=== PATIENT | female | born 1995 | race Two or more races ===

== ENCOUNTER → 2017-01-10 | Emergency (ER) | payer MEDICAID ==
[~2017-01-10] VITALS: Ht 167.6 cm; Wt 73.0 kg
[~2017-01-10] MED LIST: Acetaminophen 500mg (ES) tab ORAL ONE; IBUPROFEN600 MG ORAL; NKM
--- NOTE | 2017-01-10 16:16 | Emergency Room Report ---
History of Present Illness General Chief Complaint: Lower Extremity Injury Source: Patient Present Illness HPI 21 YO Female Pt. presents to the ED c/o 08/29 pain and swelling in the left ankle and pain radiating up the bilateral anterior shins as well x 2 weeks. s/ p excessive daily treadmill training. pt reports that her athletic trainer told her not to rest that the pain is her ankles " getting accustomed to running." denies bruising, or appreciable fall. Pt. states pain is exacerbated with walking/ and weight bearing. Pt. has only been doing ice and elevation, denies taking medications for her symptoms. Denies numbness tingling or loss of sensation or gross motor movements of the extremities, incontinence of bowel or bladder. Denies CP, Palpitations, LOC, AMS, dizziness, Changes in Vision, Sensation, paresthesias, or a sudden severe headache. Allergies: Coded Allergies: No Known Allergies (Unverified , 01/10/17) Patient History Past Medical History: see triage record Past Surgical History: none Pertinent Family History: none Last Menstrual Period: 12/09/16 Now: No Immunizations: UTD Reviewed Nursing Documentation: PMH: Agreed, PSxH: Agreed Nursing Documentation-PMH Past Medical History: No Stated History Review of Systems All Other Systems: negative except mentioned in HPI Physical Exam Vital Signs Date Time Temp Pulse Resp B/P Pulse Ox O2 Delivery O2 Flow Rate FiO2 01/10/17 14:52 99.1 62 14 110/58 99 Room Air Sp02 EP Interpretation: reviewed, normal General Appearance: no apparent distress, alert, GCS 15, non-toxic Head: normocephalic, atraumatic Eyes: bilateral eye PERRL, bilateral eye normal inspection ENT: hearing grossly normal, normal pharynx, no angioedema, normal voice Neck: full range of motion, supple/symm/no masses Respiratory: chest non-tender, lungs clear, normal breath sounds, speaking full sentences Cardiovascular #1: regular rate, rhythm, no edema, normal capillary refill Musculoskeletal: back normal, gait/station normal, normal range of motion, no calf tenderness, swelling - left ankle swelling, and ttp, no increased laxity or bruising. pt also has mild bilateraly anterior ag ttp, no obvious deformities. Neurologic: alert, oriented x3, responsive, motor strength/tone normal, sensory intact, speech normal Psychiatric: judgement/insight normal, memory normal, mood/affect normal, no suicidal/homicidal ideation Skin: normal color, no rash, warm/dry, well hydrated Lymphatic: no adenopathy Medical Decision Making PA Attestation Dr. Her is my supervising Physician whom patient management has been discussed with. Diagnostic Impression: Primary Impression: Ag splints Qualified Codes: S86.892A - Other injury of other muscle(s) and tendon(s) at lower leg level, left leg, initial encounter Additional Impression: Left ankle sprain Qualified Codes: S93.402A - Sprain of unspecified ligament of left ankle, initial encounter ER Course Pt. presents to the ED c/o 10/10 pain and swelling in the left ankle and pain radiating up the bilateral anterior shins as well. s/p excessive daily treadmill training. denies bruising, or appreciable fall. Ddx considered but are not limited to Fracture, dislocation, contusion, Sprain/ Strain/Spasm, Ag splints. Vital signs: are WNL, pt. is afebrile H&PE are most consistent with ankle sprain and ag splints. ORDERS: - X-ray Left ankle 3 views - negative for fx, Dislocation, or significant soft tissue injury, per preliminary read in ED by Dr. Her. ED INTERVENTIONS: - 500mg Tylenol PO -Herman wrap applied to the left ankle by assistant professor surgical technology. Pt. remains neurovascularly intact. - pt is provided with crutches and instructed on their use by assistant professor surgical technology. DISCHARGE: At this time pt. is stable for d/c to home. Will provide printed patient care instructions, and any necessary prescriptions. Care plan and follow up instructions have been discussed with the patient prior to discharge. Last Vital Signs Date Time Temp Pulse Resp B/P Pulse Ox O2 Delivery O2 Flow Rate FiO2 01/10/17 14:52 99.1 62 14 110/58 99 Room Air Disposition: HOME, SELF-CARE Condition: Stable Scripts Ibuprofen* (MOTRIN*) 600 Mg Tablet 600 MG ORAL THREE TIMES A DAY, #30 TAB 0 Refills Prov: Guillermina Schwartz 01/10/17 Patient Instructions: Ankle Sprain, Ag Splints Additional Instructions: Take medications as directed. Follow up with PCP in 3-5 days Return sooner to ED if new symptoms occur, or current symptoms become worse. - Please note that this Emergency Department Report was dictated using [employer] certified project manager technology software, occasionally this can lead to erroneous entry secondary to interpretation by the dictation equipment. Guillermina Schwartz Jan 10, 2017 16:16
[2017-01-10 16:29] VITALS: BP 110/58
--- NOTE | 2017-01-10 16:39 | Diagnostic Imaging Report ---
Indication: PAIN Technique: 3 views of the left ankle Comparison: none Findings: No acute fractures. No dislocations. Joint spaces are preserved. Normal mineralization. No radiopaque foreign body. Impression: Negative
== END | disposition home or self-care (01) ==
LOC: EMR 14:50
DX: S86.892A Other injury of other muscle(s) and tendon(s) at lower leg level, left leg, initial encounter (principal); S93.402A Sprain of unspecified ligament of left ankle, initial encounter; X58.XXXA Exposure to other specified factors, initial encounter; Y93.A1 Activity, exercise machines primarily for cardiorespiratory conditioning; Y92.9 Unspecified place or not applicable; Y99.8 Other external cause status
CPT/HCPCS: 29540; 99283

== ENCOUNTER 2019-01-04 17:42 | Emergency (ER) | payer MEDICAID ==
[~2019-01-04] VITALS: Ht 165.1 cm; Wt 81.6 kg
[~2019-01-04 17:42] MED LIST changes: -Acetaminophen 500mg (ES) tab ORAL ONE
[2019-01-04 17:59] VITALS: BP 100/68
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
[2019-01-04] MEDS ORDERED: Tetanus/Diptheria/Pertussis Vaccine 0.5ml Syr IM ONE (18:30)
--- NOTE | 2019-01-04 18:42 | Emergency Room Report ---
History of Present Illness General Chief Complaint: Laceration Source: Patient Present Illness HPI Left wrist lac sustained last monday, flap, not sutured. pt. not utd with tdap. Allergies: Coded Allergies: No Known Allergies (Unverified , 01/10/17) Patient History Last Menstrual Period: 12/25/2018 Nursing Documentation-[facility] Past Medical History: No Stated History Physical Exam Vital Signs Date Time Temp Pulse Resp B/P (MAP) Pulse Ox O2 Delivery O2 Flow Rate FiO2 01/04/19 17:59 98.4 86 16 100/68 97 Room Air Medical Decision Making PA Attestation Dr. Jameson is my supervising Physician whom patient management has been discussed with. Diagnostic Impression: Primary Impression: Immunization, tetanus toxoid Additional Impression: Laceration ER Course Pt. presents to the ED c/o laceration to [ ] Ddx considered but are not limited to laceration, tendon injury, cellulitis, amputation Vital signs: are WNL, pt. is afebrile H&PE are most consistent with: [ ] laceration approx [ ] cm in length ORDERS: none required at this time, the diagnosis is clinical ED INTERVENTIONS: -Tetanus vaccine was administered as pt. vaccination status was unknown. - The wound was copiously irrigated with normal saline, and explored for foreign body for which no FB was found. - pt. is anesthetized with 1%lidocaine w. epi. [ ] deep vycril matress sutures were used to approximate the underlying subcutaneous fat of the open wound. - The wound was approximated and closed using [ ] interrupted [ ] Prolene sutures. -Bacitracin and sterile dressing is applied. Discussed with patient: That we make every effort to approximate the laceration as best as we can so that scarring will be as cosmetically pleasing as possible with our limited cosmetic skill set in the Emergency dept. Regardless of our best efforts there will be scarring after laceration repair. The extent of scarring is unknown at this time. DISCHARGE: At this time pt. is stable for d/c to home. Will provide printed patient care instructions, and any necessary prescriptions. Care plan and follow up instructions have been discussed with the patient prior to discharge. Last Vital Signs Date Time Temp Pulse Resp B/P (MAP) Pulse Ox O2 Delivery O2 Flow Rate FiO2 01/04/19 17:59 98.4 16 100/68 97 Room Air 01/04/19 17:59 86 Disposition: HOME, SELF-CARE Condition: Stable Patient Instructions: Nonsutured Laceration Care Additional Instructions: Take previously prescribed medications as directed. -Discontinue Hydrogen Peroxide use. Follow up with a Primary Care Provider in 3-5 days, even if your symptoms have resolved. --Please review list of primary care clinics, if you do not already have a primary care provider Return sooner to ED if new symptoms occur, or current symptoms become worse. - Please note that this Emergency Department Report was dictated using [employer] 1 Performance[employer] supervisor technology software, occasionally this can lead to erroneous entry secondary to interpretation by the dictation equipment. Guillermina Schwartz Jan 04, 2019 18:42
[2019-01-04] MEDS ORDERED: TYLENOL EXTRA500 MG ORAL (18:43)
[2019-01-04] MEDS ORDERED: Ketorolac 30mg Inj IM ONE (18:45)
[2019-01-04 18:47] VITALS: BP 100/68
--- NOTE | 2019-01-04 18:48 | NUR ---
ER Nurse Note: A/OX4. PT IS CLEARED BY RICARDO ROTH. DC INSTRUCTION AND PRESCRIPTIONS GIVEN, PT VERBALIZED UNDERSTSANDING. IV/ID WRISTBAND REMOVED. ALL BELONGINGS TAKEN BY PT. DENIES ANY PAIN AT THIS TIME. PT AMBULATED OUT OF ER WITH STEADY GAIT.
== END 2019-01-04 18:47 | disposition home or self-care (01) ==
LOC: EMR 18:26
DX: S61.512A Laceration without foreign body of left wrist, initial encounter (principal); W25.XXXA Contact with sharp glass, initial encounter; Y92.9 Unspecified place or not applicable; Z23 Encounter for immunization
CPT/HCPCS: 12001; 90471; 90715; 96372; 99283; J1885; Z7502

== ENCOUNTER 2019-04-19 18:10 | Emergency (ER) | payer MEDICAID ==
[~2019-04-19] VITALS: Ht 167.6 cm; Wt 78.0 kg
[~2019-04-19 18:10] MED LIST changes: +TYLENOL EXTRA500 MG ORAL
[2019-04-19] MEDS ORDERED: TRAZODONE HCL50 MG ORAL (18:28)
[2019-04-19] MEDS ORDERED: SERTRALINE HCL50 MG ORAL (18:28)
[2019-04-19 18:30] VITALS: BP 122/81
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
--- NOTE | 2019-04-19 19:05 | NUR ---
ED Nurse Note: xray on bedside
--- NOTE | 2019-04-19 19:28 | Diagnostic Imaging Report ---
EXAM: XR Chest, 1 View CLINICAL HISTORY: CP TECHNIQUE: Frontal view of the chest. COMPARISON: No relevant prior studies available. FINDINGS: Lungs: No consolidation. Pleural space: Unremarkable. No pneumothorax. Heart: Unremarkable. No cardiomegaly. Mediastinum: Unremarkable. Bones/joints: No acute fracture. IMPRESSION: No acute cardiopulmonary disease.
[2019-04-19] MEDS ORDERED: IBUPROFEN600 MG ORAL (19:49)
[2019-04-19 20:07] VITALS: BP 119/67
--- NOTE | 2019-04-19 20:07 | NUR ---
ED Nurse Note: pt cleared to be d/c per ERMD, pt discharge and aftercare instruction w/ prescription provided, pt advised to follow up with pcp or return to ed if changes in condition, pt verbalized understanding and agrees with plan, vss, ambulatory w/ steady gait, left w/ all belongings, pt accompanied by [employer]. Pt was given fdc list prior to d/c.
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
== END 2019-04-19 20:07 | disposition home or self-care (01) ==
LOC: EMR 19:00
DX: S20.219A Contusion of unspecified front wall of thorax, initial encounter (principal); Y04.2XXA Assault by strike against or bumped into by another person, initial encounter; Y92.9 Unspecified place or not applicable
CPT/HCPCS: 71045; 99283

== ENCOUNTER 2019-11-11 10:36 | Emergency (ER) | payer SELFPAY ==
[~2019-11-11] VITALS: Ht 167.6 cm; Wt 81.6 kg
[~2019-11-11 10:36] MED LIST changes: +SERTRALINE HCL50 MG ORAL; +TRAZODONE HCL50 MG ORAL
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
[2019-11-11] MEDS ORDERED: Acetaminophen 500mg (ES) tab ORAL ONE (11:00)
[2019-11-11] MEDS ORDERED: Augmentin 875mg Tab ORAL ONE (11:00)
[2019-11-11 11:11] VITALS: BP 119/61
[2019-11-11] MEDS ORDERED: SILVADENE20 GM TP (11:19)
[2019-11-11] MEDS ORDERED: TYLENOL EXTRA500 MG ORAL (11:19)
[2019-11-11] MEDS ORDERED: AUGMENTIN 875-1 EAC1 ORAL (11:19)
--- NOTE | 2019-11-11 11:30 | NUR ---
ED Nurse Note: Pt's wound dressed.
[2019-11-11 11:47] VITALS: BP 119/61
--- NOTE | 2019-11-11 11:48 | NUR ---
ED Nurse Note: Pt cleared by health care Provider for discharge. DC instructions was given and explained to pt and verbalized understanding of teachings. pt with script sent electronically All medical devices such as ID band removed. Pt is AAO x4, ambulatory and left with all personal belongings.
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
== END 2019-11-11 11:49 | disposition home or self-care (01) ==
LOC: EMR 11:14
DX: T20.26XA Burn of second degree of forehead and cheek, initial encounter (principal); F19.10 Other psychoactive substance abuse, uncomplicated; X58.XXXA Exposure to other specified factors, initial encounter; Y92.9 Unspecified place or not applicable
CPT/HCPCS: 99282